=== PATIENT | female | born 1985 | race Caucasian/White ===

== ENCOUNTER 2018-12-30 17:14 | Emergency (ER) | payer MEDICAID ==
--- NOTE | 2018-12-30 17:32 | ER Document Report ---
ED Medical Screen (RME) - General Chief Complaint: Flank Pain Stated Complaint: FLANK PAIN Time Seen by Provider: 12/30/18 17:27 Mode of Arrival: Ambulatory Information source: Patient Notes: 33-year-old female presented to ED for complaint of hematuria. She states she went to the primary care doctor yesterday because she thought she had a UTI he told her that her urine was clean and did not have a UTI but she has some blood in the urine. She states she came to the emergency room because she has a history of kidney stones and she has been having some pain in her kidneys. Patient is alert oriented respirations regular and unlabored speaking in full sentences. She does have a history of kidney stones and hysterectomy. She does smoke 6 to 7 cigarettes a day but does not drink or do any drugs. She is alert oriented respirations regular and unlabored. Will order blood urine and a renal ultrasound. I have greeted and performed a rapid initial assessment of this patient. A comprehensive ED assessment and evaluation of the patient, analysis of test results and completion of medical decision making process will be conducted by an additional ED providers. TRAVEL OUTSIDE OF THE [place] IN LAST 30 DAYS: No - Related Data Allergies/Adverse Reactions: No Known Allergies Allergy (Unverified 12/30/18 17:15) Physical Exam - Vital signs Vitals: Temp Pulse Resp BP Pulse Ox 99.1 F 98 15 123/71 92 12/30/18 17:19 12/30/18 17:19 12/30/18 17:19 12/30/18 17:19 12/30/18 17:19 Course - Vital Signs Vital signs: Temp Pulse Resp BP Pulse Ox 99.1 F 98 15 123/71 92 12/30/18 17:19 12/30/18 17:19 12/30/18 17:19 12/30/18 17:19 12/30/18 17:19
[2018-12-30 17:55] LABS: ABSOLUTE EOSINOPHILS # (AUTO) 0.1 10^3/uL (0.0-0.6); TOTAL CELLS COUNTED % (AUTO) 100 %
[2018-12-30 18:01] LABS: ABSOLUTE LYMPHOCYTES (AUTO) 2.1 10^3/uL (0.5-4.7); ABSOLUTE MONOCYTES (AUTO) 0.5 10^3/uL (0.1-1.4); ABSOLUTE NEUT (AUTO) 3.8 10^3/uL (1.7-8.2); BASOPHILS % (AUTO) 0.6 % (0-2); EOSINOPHILS % (AUTO) 1.8 % (0-6); HEMOGLOBIN 12.9 g/dL (12.0-15.5); LYMPHOCYTES % (AUTO) 31.8 % (13-45); MEAN CORPUSCULAR HEMOGLOBIN 29.4 pg (27.0-33.4); MEAN CORPUSCULAR HGB CONC 33.1 g/dL (32.0-36.0); MEAN CORPUSCULAR VOLUME 89 fl (80-97); PLATELET COUNT 238 10^3/uL (150-450); RED BLOOD COUNT 4.39 10^6/uL (3.72-5.28); RED CELL DISTRIBUTION WIDTH 12.9 % (11.5-14.0); SEGMENTED NEUTROPHILS % (AUTO) 58.8 % (42-78); WHITE BLOOD COUNT 6.5 10^3/uL (4.0-10.5)
[2018-12-30 18:06] LABS: AMORPHOUS SEDIMENT,URINE TRACE /HPF; APPEARANCE,URINE SLIGHTLY-CLOUDY; BILIRUBIN,URINE NEGATIVE (NEGATIVE); COLOR,URINE AMBER; GLUCOSE, URINE NEGATIVE (NEGATIVE); KETONES,URINE TRACE mg/dL (NEGATIVE); LEUKOCYTE ESTERASE,URINE NEGATIVE (NEGATIVE); NITRITE,URINE POSITIVE (NEGATIVE); PROTEIN,URINE NEGATIVE (NEGATIVE); URINE SPECIFIC GRAVITY 1.018
[2018-12-30 18:15] LABS: ALBUMIN 4.5 g/dL (3.5-5.0); ALKALINE PHOSPHATASE 73 U/L (38-126); ANION GAP 8 (5-19); ASPARTATE AMINO TRANSFERASE 28 U/L (14-36); BILIRUBIN,DIRECT 0.1 mg/dL (0.0-0.4); BILIRUBIN,TOTAL 0.3 mg/dL (0.2-1.3); BLOOD UREA NITROGEN 16 mg/dL (7-20); CALCIUM 9.9 mg/dL (8.4-10.2); CARBON DIOXIDE 29 mmol/L (22-30); CHLORIDE 103 mmol/L (98-107); GLUCOSE 94 mg/dL (75-110); POTASSIUM 4.4 mmol/L (3.6-5.0); TOTAL PROTEIN 7.1 g/dL (6.3-8.2)
--- NOTE | 2018-12-30 20:32 | RADIOLOGY REPORT (SQ) ---
EXAM DESCRIPTION: US RETROPERITONEUM COMPLETED DATE/TME: 12/30/2018 17:28 CLINICAL HISTORY: 33 years Female hematuria hx of kidney stones COMPARISON: None. TECHNIQUE: Transabdominal grayscale imaging performed to evaluate the abdomen. FINDINGS: IVC is patent. Aorta is normal in caliber. There is hyper echogenicity in the medullary pyramids bilaterally. Bright reflectors are seen which may reflect small stones. The possibility of medullary sponge kidney is not excluded. Urinary bladder is incompletely distended. No hydronephrosis. IMPRESSION: Echogenic renal pyramids with some foci of echogenicity that may reflect stones. Possibility of medullary sponge kidney is not excluded
--- NOTE | 2018-12-30 20:57 | ER Document Report ---
ED GI/ - General Chief Complaint: Flank Pain Stated Complaint: FLANK PAIN Time Seen by Provider: 12/30/18 20:57 Primary Care Provider: RACHANA PORTER MD [[facility]OW[facility]] - Follow up as needed Mode of Arrival: Ambulatory Information source: Patient Notes: HISTORY OF PRESENT ILLNESS: Patient is a 33-year-old female with a past medical history of kidney stones who presents with several days of left flank pain associated with dysuria and hematuria. Patient reports that she has no history of stones requiring stents in the past, however this is slightly different. She reports presenting to her primary physician 2 days ago where her urine test was "normal, but again the antibiotics anyway. I was not able to get the antibiotics because my insurance company will not pay for it." Location: Abdomen, left flank Onset: Gradual Alleviation: None Provocation: Urination Quality: Burning, aching Radiation: None Severity: Moderate Timing: Intermittent History of abdominal surgery: None Associated symptoms: No fevers or chills, vaginal bleeding or discharge Last bowel movement: Today and normal REVIEW OF SYSTEMS: CONSTITUTIONAL : Denies fever or chills, no sweats. Denies recent illness. EENT: Denies eye, ear, throat, or mouth pain or symptoms. Denies nasal or sinus congestion. CARDIOVASCULAR: Denies chest pain. Denies swelling of the legs. RESPIRATORY: Denies cough, cold, or chest congestion. Denies shortness of breath or difficulty breathing. Denies wheezing. GASTROINTESTINAL: Positive for left flank abdominal pain. Denies nausea, vomiting, or diarrhea. Denies constipation. GENITOURINARY: Positive for dysuria and hematuria. FEMALE GENITOURINARY: Denies vaginal bleeding, abnormal or irregular periods. MUSCULOSKELETAL: Denies neck or back pain or joint pain or swelling. SKIN: Denies rash or skin lesions. HEMATOLOGIC : Denies easy bruising or bleeding. LYMPHATIC: Denies swollen, enlarged glands. NEUROLOGICAL: Denies altered mental status or loss of consciousness. Denies headache. Denies weakness or paralysis or loss of use of either side. Denies problems with gait or speech. Denies sensory or motor loss. PSYCHIATRIC: Denies anxiety or stress or depression. All other systems reviewed and negative. PHYSICAL EXAMINATION: GENERAL: Well-appearing, well-nourished and in no acute distress. HEAD: Atraumatic, normocephalic. No scalp deformity, depression, or crepitance. EYES: Pupils are 3 mm and equal/round/reactive to light, extraocular movements intact, sclera anicteric, conjunctiva are normal. ENT: Nares patent bilaterally, oropharynx. Moist mucous membranes. No tonsil hypertrophy. NECK: Normal range of motion, supple without lymphadenopathy. LUNGS: Breath sounds present, equal, and clear to auscultation bilaterally. No wheezes, rales, or rhonchi. HEART: Regular rate and rhythm without murmurs, rubs, or gallops. 2+ peripheral pulses. Normal capillary refill. ABDOMEN: Soft, nondistended, mild left CVA tenderness. Normoactive bowel sounds. No guarding, no rebound. No masses appreciated. BACK: Normal contour, no midline tenderness. Rectal exam deferred. GENITAL/PELVIC: Deferred. EXTREMITIES: Normal range of motion, no pitting or edema. No cyanosis. NEUROLOGICAL: No focal neurological deficits. Moves all extremities spontaneously and on command. PSYCH: Normal mood, normal affect. No suicidal thoughts/ideations. No homicidal thoughts/ideations. No hallucinations. SKIN: Warm, dry, normal turgor, no rashes or lesions noted. ASSESSMENT AND PLAN: This patient is a 33-year-old female who presents with dysuria with hematuria and left flank pain. 1. Will obtain labs, urine, and reassess. 2. Renal ultrasound performed prior to our encounter showed renal stones in the left kidney but no evidence of hydronephrosis. TRAVEL OUTSIDE OF THE [place] IN LAST 30 DAYS: No - HPI Patient complains to provider of: Abdominal pain, Flank pain, Hematuria Onset: Yesterday Timing/Duration: Gradual Quality of pain: Achy, Throbbing Severity at maximum: Moderate Severity in ED: Mild Pain Level: 1 Location: Left flank Vaginal bleeding (Compared to normal period): None OB ultrasound done: No vitamins taken: No Sexual history: Active Associated symptoms: None Exacerbated by: Movement Similar symptoms previously: Yes Recently seen / treated by doctor: No - Related Data Allergies/Adverse Reactions: No Known Allergies Allergy (Unverified 12/30/18 17:15) Past Medical History - General Information source: Patient - Social History Smoking Status: Current Every Day Smoker Chew tobacco use (# tins/day): No Frequency of alcohol use: None Drug Abuse: None Lives with: Family Family History: Reviewed & Not Pertinent Patient has suicidal ideation: No Patient has homicidal ideation: No - Past Medical History Cardiac Medical History: Reports: None Pulmonary Medical History: Reports: None EENT Medical History: Reports: None Neurological Medical History: Reports: None Endocrine Medical History: Reports: None Renal/ Medical History: Reports: Hx Kidney Stones Malignancy Medical History: Reports: None GI Medical History: Reports: None Musculoskeletal Medical History: Reports None Skin Medical History: Reports None Psychiatric Medical History: Reports: None Traumatic Medical History: Reports: None Infectious Medical History: Reports: None Surgical Hx: Negative Past Surgical History: Reports: None - Immunizations Immunizations up to date: Yes Hx Diphtheria, Pertussis, Tetanus Vaccination: Yes Review of Systems - Review of Systems Constitutional: No symptoms reported EENT: No symptoms reported Cardiovascular: No symptoms reported Respiratory: No symptoms reported Gastrointestinal: See HPI Genitourinary: See HPI, Flank pain Female Genitourinary: No symptoms reported Musculoskeletal: No symptoms reported Skin: No symptoms reported Hematologic/Lymphatic: No symptoms reported Neurological/Psychological: No symptoms reported -: Yes All other systems reviewed and negative Physical Exam - Vital signs Vitals: Temp Pulse Resp BP Pulse Ox 99.1 F 98 15 123/71 92 12/30/18 17:19 12/30/18 17:19 12/30/18 17:19 12/30/18 17:19 12/30/18 17:19 Interpretation: Normal - General General appearance: Appears well, Alert - HEENT Head: Normocephalic, Atraumatic Eyes: Normal Pupils: PERRL - Respiratory Respiratory status: No respiratory distress Chest status: Nontender Breath sounds: Normal Chest palpation: Normal - Cardiovascular Rhythm: Regular Heart sounds: Normal auscultation Murmur: No - Abdominal Inspection: Normal Distension: No distension Bowel sounds: Normal Tenderness: Nontender Organomegaly: No organomegaly - Back Back: Normal, Nontender - Extremities General upper extremity: Normal inspection, Nontender, Normal color, Normal ROM, Normal temperature General lower extremity: Normal inspection, Nontender, Normal color, Normal ROM, Normal temperature, Normal weight bearing. No: Aidee's sign - Neurological Neuro grossly intact: Yes Cognition: Normal Orientation: AAOx4 Omer Coma Scale Eye Opening: Spontaneous Bhanu Coma Scale Verbal: Oriented Omer Coma Scale Motor: Obeys Commands Omer Coma Scale Total: 15 Speech: Normal Motor strength normal: LUE, RUE, LLE, RLE Sensory: Normal - Psychological Associated symptoms: Normal affect, Normal mood - Skin Skin Temperature: Warm Skin Moisture: Dry Skin Color: Normal Course - Re-evaluation Re-evalutation: 12/30/18 21:49 Patient has evidence of UTI, possible concern for pyelonephritis. However, ultrasound does not show evidence of hydronephrosis or renal abscess. Given history, ureterolithiasis is a concern, but there is no blood in the urine sample. Patient will be presumptively treated for nitrite positive UTI and will need to follow-up with urology. Will discharge the patient home with strict ret urn precautions and follow-up with primary care and urology. All results were explained to and discussed with the patient, and all questions addressed and answered for the patient. The patient voices both understanding and agreeing with the plan. - Vital Signs Vital signs: Temp Pulse Resp BP Pulse Ox 97.9 F 65 14 112/63 96 12/30/18 22:03 12/30/18 22:03 12/30/18 22:03 12/30/18 22:03 12/30/18 22:03 - Laboratory Result Diagrams: 12/30/18 17:30 12/30/18 17:30 Laboratory results interpreted by me: 12/30/18 17:30 Urine Ketones TRACE H Urine Nitrite POSITIVE H Urine Urobilinogen 4.0 H - Diagnostic Test Radiology reviewed: Image reviewed, Reports reviewed Discharge - Discharge Clinical Impression: UTI (urinary tract infection) Qualifiers: Urinary tract infection type: acute cystitis Hematuria presence: without hematuria Qualified Code(s): N30.00 - Acute cystitis without hematuria Condition: Good Disposition: HOME, SELF-CARE Instructions: Family Physicians / Practices, Urinary Tract Infection ([facility]) Additional Instructions: You have been evaluated in the Emergency Department for flank pain and difficulty urinating, related to a urinary tract infection. While here, you had blood work and a renal ultrasound and it is now safe to be discharged home. Please follow-up with your primary care and a urologist as instructed in 1 week to be rechecked. Return to the Emergency Department if you experience worsening pain, inability to urinate, high fevers, or any other concerning symptoms. Prescriptions: Tamsulosin HCl [Flomax] 0.4 mg PO DAILY #30 cap.er.24h Levofloxacin [Levaquin 500 mg Tablet] 500 mg PO DAILY #10 tablet Phenazopyridine HCl [Pyridium 100 Mg Tablet] 100 mg PO TID #12 tablet Referrals: RACHANA PORTER MD [[facility]CGOW[facility]] - Follow up as needed Print Language: Ecuadorean
[2018-12-30] MEDS ORDERED: LEVOFLOXACIN 500 MG TABLET PO ONE (21:33)
[2018-12-30] MEDS ORDERED: PHENAZOPYRIDINE HCL 100 MG TABLET PO ONE (21:33)
[2018-12-30 22:07] VITALS: BP 112/63
== END 2018-12-30 22:07 | disposition home or self-care (01) ==
LOC: ER 17:14
DX: N30.00 Acute cystitis without hematuria (principal); R10.9 Unspecified abdominal pain; R30.0 Dysuria; F17.200 Nicotine dependence, unspecified, uncomplicated; Z87.442 Personal history of urinary calculi
CPT/HCPCS: 99284; 36415; 87086; 85025; 87088; 80053; 81001; 87186; 76770; J3490 ×2